=== PATIENT | female | born 1995 | race African-American/Black ===

== ENCOUNTER 2018-01-19 07:25 | Emergency (ER) | payer OTHER ==
[~2018-01-19] VITALS: Ht 170.2 cm; Wt 75.2 kg
[2018-01-19 07:32] VITALS: BP 138/66; PULSE 102; RESP 16; TEMP 98.7; O2SAT 98
[2018-01-19 08:11] LABS: AUTOMATED NEUTROPHIL # 6.9 TH/MM3 (1.8-7.7); BASOPHIL % 0.5 % (0.0-2.0); EOSINOPHIL % 0.1 % (0.0-4.0); HEMATOCRIT 39.7 % (35.0-46.0); HEMOGLOBIN 13.9 GM/DL (11.6-15.3); LYMPHOCYTE # 0.8 TH/MM3 (1.0-4.8); MEAN CELL VOLUME 87.6 FL (80.0-100.0); MEAN CORPUSCULAR HEMOGLOBIN 30.8 PG (27.0-34.0); MEAN CORPUSCULAR HGB CONC 35.1 % (32.0-36.0); MEAN PLATELET VOLUME 9.3 FL (7.0-11.0); MONO % 4.9 % (0.0-8.0); MONOCYTE # 0.4 TH/MM3 (0-0.9); NEUT % 84.5 % (16.0-70.0); PLATELET COUNT 212 TH/MM3 (150-450); RED BLOOD COUNT 4.53 MIL/MM3 (4.00-5.30); RED CELL DISTRIBUTION WIDTH 13.3 % (11.6-17.2); WHITE BLOOD COUNT 8.2 TH/MM3 (4.0-11.0)
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
[2018-01-19 08:19] LABS: BILIRUBIN, URINE NEG (NEG); BLOOD, URINE MOD (NEG); GLUCOSE,URINE NEG (NEG); HYALINE CAST, URINE 3 /lpf (RARE); KETONE, URINE TRACE mg/dL (NEG); MUCUS URINE MANY /lpf (OCC); NITRITE,URINE NEG (NEG); PH, URINE 5.5 (5.0-8.5); SQUAMOUS EPITHELIAL CELL URINE 14 /hpf (0-5); URINE COLOR YELLOW (YELLW/STRAW); URINE LEUKOCYTE ESTERASE NEG (NEG)
[2018-01-19 08:33] LABS: ALBUMIN 3.9 GM/DL (3.4-5.0); ALT (GPT) 17 U/L (10-53); AST (GOT) 14 U/L (15-37); BICARBONATE 24.7 MEQ/L (21.0-32.0); BLOOD UREA NITROGEN 13 MG/DL (7-18); CALCIUM 9.2 MG/DL (8.5-10.1); CHLORIDE 110 MEQ/L (98-107); CREATININE 0.77 MG/DL (0.50-1.00); GLOMERULAR FILTRATION RATE 95 ML/MIN (>89); GLUCOSE,RANDOM 132 MG/DL (74-106); SODIUM (NA) 141 MEQ/L (136-145)
[2018-01-19 08:35] LABS: ALKALINE PHOSPHATASE 114 U/L (45-117); TOTAL BILIRUBIN ADULT 0.8 MG/DL (0.2-1.0); TOTAL PROTEIN 7.7 GM/DL (6.4-8.2)
[2018-01-19 14:00] VITALS: BP 99/52; PULSE 72; RESP 20; TEMP 96.9; O2SAT 100
[2018-01-19 18:30] VITALS: BP 105/53; PULSE 67; RESP 16; TEMP 98.7; O2SAT 99
[2018-01-19 23:04] VITALS: BP 109/53; PULSE 59; RESP 18; TEMP 98.2; O2SAT 97
[2018-01-20 02:12] VITALS: BP 99/50; PULSE 56; RESP 16; TEMP 98.7; O2SAT 96
[2018-01-20 06:48] VITALS: BP 96/53; PULSE 55; RESP 18; TEMP 98.7; O2SAT 100
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
[2018-01-20 09:26] VITALS: BP 96/53; PULSE 55; RESP 18; TEMP 98.7; O2SAT 100
--- NOTE | 2018-01-20 16:31 | PD ---
Physical Exam Time Seen by Provider: 16:[address] Toth has evaluated patient, lifted the Briseno act and cleared the patient for discharge. Data Data Last Documented VS Vital Signs Date Time Temp Pulse Resp B/P (MAP) Pulse Ox O2 Delivery O2 Flow Rate FiO2 01/20/18 09:26 98.7 55 18 96/53 (67) 100 01/20/18 06:48 Room Air Orders Orders Complete Blood Count With Diff (01/19/18 07:37) Comprehensive Metabolic Panel (01/19/18 07:37) Urinalysis - C+S If Indicated (01/19/18 07:37) Ed Urine Pregnancytest Poc (01/19/18 07:37) Psych Screen (01/19/18 07:37) Drug Screen, Random Urine (01/19/18 07:37) Diet Regular Basic (01/19/18 Breakfast) Diet Regular Basic (01/19/18 Lunch) Diet Regular Basic (01/19/18 Dinner) Diet Regular Basic (01/20/18 Breakfast) Diet Regular Basic (01/20/18 Lunch) Labs Laboratory Tests Test 01/19/18 07:53 White Blood Count 8.2 TH/MM3 Red Blood Count 4.53 MIL/MM3 Hemoglobin 13.9 GM/DL Hematocrit 39.7 % Mean Corpuscular Volume 87.6 FL Mean Corpuscular Hemoglobin 30.8 PG Mean Corpuscular Hemoglobin Concent 35.1 % Red Cell Distribution Width 13.3 % Platelet Count 212 TH/MM3 Mean Platelet Volume 9.3 FL Neutrophils (%) (Auto) 84.5 % Lymphocytes (%) (Auto) 10.0 % Monocytes (%) (Auto) 4.9 % Eosinophils (%) (Auto) 0.1 % Basophils (%) (Auto) 0.5 % Neutrophils # (Auto) 6.9 TH/MM3 Lymphocytes # (Auto) 0.8 TH/MM3 Monocytes # (Auto) 0.4 TH/MM3 Eosinophils # (Auto) 0.0 TH/MM3 Basophils # (Auto) 0.0 TH/MM3 CBC Comment DIFF FINAL Differential Comment Urine Color YELLOW Urine Turbidity HAZY Urine pH 5.5 Urine Specific [place] 1.029 Urine Protein 100 mg/dL Urine Glucose (UA) NEG mg/dL Urine Ketones TRACE mg/dL Urine Occult Blood MOD Urine Nitrite NEG Urine Bilirubin NEG Urine Urobilinogen 2.0 MG/DL Urine Leukocyte Esterase NEG Urine RBC 2 /hpf Urine WBC 2 /hpf Urine Squamous Epithelial Cells 14 /hpf Urine Hyaline Casts 3 /lpf Urine Mucus MANY /lpf Microscopic Urinalysis Comment CULT NOT INDICATED Blood Urea Nitrogen 13 MG/DL Creatinine 0.77 MG/DL Random Glucose 132 MG/DL Total Protein 7.7 GM/DL Albumin 3.9 GM/DL Calcium Level 9.2 MG/DL Alkaline Phosphatase 114 U/L Aspartate Amino Transf (AST/SGOT) 14 U/L Alanine Aminotransferase (ALT/SGPT) 17 U/L Total Bilirubin 0.8 MG/DL Sodium Level 141 MEQ/L Potassium Level 3.9 MEQ/L Chloride Level 110 MEQ/L Carbon Dioxide Level 24.7 MEQ/L Anion Gap 6 MEQ/L Estimat Glomerular Filtration Rate 95 ML/MIN Urine Opiates Screen NEG Urine Barbiturates Screen NEG Urine Amphetamines Screen NEG Urine Benzodiazepines Screen NEG Urine Cocaine Screen NEG Urine Cannabinoids Screen NEG MDM Supervised Visit with ISABELLA: No Narrative Course Dr. Toth has evaluated patient, lifted the Briseno act and cleared the patient for discharge. Patient contracts safety. Denies suicidal or homicidal ideations. Patient will be provided community resource packet to [facility] for follow-up. Has friends and family for support. Patient was medically cleared by alternate provider prior to psych screening. Patient has been evaluated by psychiatry and and is now cleared for discharge. Diagnosis Primary Impression: Adjustment disorder with mixed disturbance of emotions and conduct Referrals: [facility] (Out patient) [facility] Primary Care Physician Psychiatrist Felicita PATEL Behavior[facility] Patient Instructions: General Instructions, Mood Disorders (ED) Additional Instruction: Contract safety to your self and others Follow-up with psychiatry Follow-up with primary care provider Follow-up with Micheal Dias Return to the emergency department immediately with worsening of symptoms Med/Other Pt SpecificInfo: No Change to Meds, No Meds Exist/No RX given Scripts No Active Prescriptions or Reported Meds Disposition: 01 DISCHARGE HOME Condition: Stable Nivia Stoddard Jan 20, 2018 16:31
== END 2018-01-20 17:59 | disposition home or self-care (01) ==
LOC: NEPD 07:25 → NEPJ 01-20 17:59
DX: F43.25 Adjustment disorder with mixed disturbance of emotions and conduct (principal); R45.851 Suicidal ideations
CPT/HCPCS: 80053; 80307; 81001; 84703; 85025; 99284